=== PATIENT | male | born 1955 | race Caucasian/White ===

== ENCOUNTER 2024-04-27 17:28 | Emergency (ER) | payer SELFPAY ==
[2024-04-27 17:29] VITALS: BP 127/94; PULSE 107; RESP 22; TEMP 36.6; O2SAT 90
--- NOTE | 2024-04-27 19:34 | PC.NURSE ---
Called patient out at 1928 to take back to a room. No answer.
--- NOTE | 2024-04-27 20:12 | PC.NURSE ---
Patient again called out at triage area to be taken back to a room. No answer.
== END 2024-04-27 21:29 | disposition left against medical advice (07) ==
DX: R06.02 Shortness of breath (principal)
CPT/HCPCS: 99199